=== PATIENT | male | born 1985 | race Caucasian/White ===

== ENCOUNTER 2019-10-22 20:30 | Emergency (ER) | payer OTHER ==
[~2019-10-22] VITALS: Ht 182.9 cm; Wt 117.9 kg
[2019-10-22 20:30] VITALS: BP 131/71
[~2019-10-22 20:30] MED LIST: ACETAMINOPHEN-1 EAC1 PO; BACTRIM DS TAB1 EACH PO; BENADRYL25 MG PO; CEPHALEXIN 500500 M3 PO; IBUPROFEN 600600 M1 PO; PEPCID20 MG PO
[2019-10-22 20:58] LABS: INFLUENZA A ANTIGEN Negative (Negative); INFLUENZA B ANTIGEN Negative (Negative)
== END 2019-10-22 21:19 | disposition home or self-care (01) ==
LOC: M.ERS 20:30
PROVIDERS: Family Medicine
DX: F41.0 Panic disorder [episodic paroxysmal anxiety] (principal)